=== PATIENT | male | born 1940 | race African-American/Black ===

== ENCOUNTER 2020-05-15 08:57 | Inpatient (IN) | payer MEDICARE, OTHER ==
[2020-05-15 09:53] LABS: #Monocytes 0.4 10x3/uL (0.0-1.1); #Neutrophils 7.6 10x3/uL (1.5-8.4); %Basophils 0.2 % (0.0-2.0); %Eosinophils 0.1 % (0.0-6.0); %Lymphocytes 7.7 % (18.0-47.0); %Monocytes 4.4 % (0.0-10.0); %Neutrophils 87.3 % (40.0-75.0); Hemoglobin 13.1 g/dL (13.5-17.5); Mean Corpuscular HGB CONC 31.7 g/dL (32.0-36.0); Mean Corpuscular Hemoglobin 31.6 pg (27.0-33.0); Mean Corpuscular Volume 99.5 fl (81.2-95.1); Mean Platelet Volume 10.2 fl (7.4-10.4); Platelet Count 175 10x3/uL (150-450); RBC Distribution Width 14.5 % (11.5-14.5); Red Blood Cell (RBC) Count 4.15 10x6/uL (4.32-5.72); White Blood Cell (WBC) Count 8.7 10x3/uL (3.5-10.5)
[2020-05-15 10:17] LABS: ALT (SGPT) 18 U/L (8-55); AST (SGOT) 25 U/L (5-34); Albumin 4.3 g/dL (3.4-4.8); Alkaline Phosphatase 98 U/L (40-110); Anion Gap 21 mmol/L (10-20); BUN (Urea Nitrogen) 26 mg/dL (8.4-25.7); Bilirubin, Total 0.9 mg/dL (0.2-1.2); Calc. Creatinine Clearance 0 mL/min (70-130); Calcium 9.6 mg/dL (7.8-10.44); Carbon Dioxide 22 mmol/L (23-31); Chloride 100 mmol/L (98-107); Globulin 4.3 g/dL (2.4-3.5); Glucose 171 mg/dL (83-110); Protein, Total 8.6 g/dL (5.8-8.1); Sodium 139 mmol/L (136-145)
[2020-05-15] MEDS ORDERED: Ondansetron PF 4 MG/2 ML Vial IVP PRN (13:06)
[2020-05-15] MEDS ORDERED: Lorazepam 2 MG/ML VIAL ONE (13:14)
[2020-05-15] MEDS ORDERED: Fentanyl CADD 100 ML IVPB SCH ×2 (14:30→19:30)
[2020-05-15 15:01] LABS: Actual Bicarbonate (HCO3a) 22.7 mEq/L (22-28); Base Excess (BEa) -5.6 mEq/L (-2.0 to +3.0); CO2 Tension 56.4 mmHg (35.0-45.0); Calcium, Ionized (arterial) 1.18 mmol/L (1.12-1.30); Carboxyhemoglobin (COHb) 0.4 gm% (0.0-3.0); O2 Tension (PaO2), arterial 189.8 mmHg (> 60.0); Potassium - ABG Lab 3.8 mmol/L (3.70-5.30); Puncture Site LRA; pH, Arterial 7.22 (7.35-7.45)
[2020-05-15 16:04] LABS: SARS-CoV-2 NAA Rapid Test Not Detected (NotDetected)
[2020-05-15 16:09] LABS: ALT (SGPT) 18 U/L (8-55); AST (SGOT) 25 U/L (5-34); Albumin 3.9 g/dL (3.4-4.8); Alkaline Phosphatase 90 U/L (40-110); Anion Gap 17 mmol/L (10-20); BUN (Urea Nitrogen) 32 mg/dL (8.4-25.7); Calc. Creatinine Clearance 0 mL/min (70-130); Calcium 9.1 mg/dL (7.8-10.44); Carbon Dioxide 26 mmol/L (23-31); Chloride 99 mmol/L (98-107); Globulin 4.2 g/dL (2.4-3.5); Glucose 157 mg/dL (83-110); Potassium 3.7 mmol/L (3.5-5.1); Protein, Total 8.1 g/dL (5.8-8.1); Sodium 138 mmol/L (136-145)
[2020-05-15 16:13] LABS: #Monocytes 0.5 10x3/uL (0.0-1.1); #Neutrophils 6.8 10x3/uL (1.5-8.4); %Basophils 0.1 % (0.0-2.0); %Eosinophils 0.1 % (0.0-6.0); %Lymphocytes 6.7 % (18.0-47.0); %Monocytes 6.2 % (0.0-10.0); %Neutrophils 86.6 % (40.0-75.0); Hemoglobin 12.9 g/dL (13.5-17.5); Mean Corpuscular HGB CONC 32.6 g/dL (32.0-36.0); Mean Corpuscular Hemoglobin 31.4 pg (27.0-33.0); Mean Corpuscular Volume 96.4 fl (81.2-95.1); Mean Platelet Volume 10.1 fl (7.4-10.4); Platelet Count 169 10x3/uL (150-450); RBC Distribution Width 14.4 % (11.5-14.5); Red Blood Cell (RBC) Count 4.11 10x6/uL (4.32-5.72); White Blood Cell (WBC) Count 7.9 10x3/uL (3.5-10.5)
[2020-05-15 16:19] LABS: Bilirubin Neg (Negative); Blood, Urine 150 (Negative); Clarity Cloudy (Clear); Glucose, Urine (Dipstick) Normal (Negative); Ketone, Urine Negative (Negative); Leukocyte 25 (Negative); Nitrite Negative (Negative); Protein, Urine (Dipstick) 100 mg/dl (Neg-Trace); Urobilinogen Normal mg/dL (Less than 2)
[2020-05-15 16:28] LABS: Bacteria/HPF 2+ HPF (None Seen); Squamous Epithelial 0-3 HPF (0-3)
[2020-05-15 16:29] LABS: Mucous/LPF 1+ LPF (<2+)
[2020-05-15 16:35] LABS: CKMB 9.5 ng/mL (0-6.6)
[2020-05-15] MEDS: D5 1/2 NS w/20 mEq KCL 1,000 ML IV SCH ×2 (18:31→22:38)
[2020-05-15] MEDS ORDERED: Propofol BOLUS 1,000 MG/100 ML VIAL IV PRN (19:30)
[2020-05-15] MEDS ORDERED: Fentanyl BOLUS 250 ML IVPB PRN (19:30)
[2020-05-15] MEDS ORDERED: Lorazepam 2 MG/ML VIAL SLOW IVP PRN (19:30)
[2020-05-15] MEDS ORDERED: Morphine 2 MG/ML VIAL SLOW IVP PRN (19:30)
[2020-05-15] MEDS ORDERED: Propofol 1,000 MG/100 ML VIAL IV PRN (19:30)
[2020-05-15] MEDS: Heparin 5,000 UNITS/ML VIAL SC SCH ×2 (20:08→22:36)
[2020-05-15] MEDS: Famotidine 20 MG TAB PO SCH (22:37)
[2020-05-16] MEDS: Propofol 1,000 MG/100 ML VIAL IV PRN ×4 (00:05→20:19)
[2020-05-16 04:07] LABS: Lactic Acid 3.7 mmol/L (0.5-2.2)
[2020-05-16] MEDS: D5 1/2 NS w/20 mEq KCL 1,000 ML IV SCH ×3 (04:07→20:32)
[2020-05-16 04:08] LABS: Hemoglobin 13.1 g/dL (13.5-17.5); Mean Corpuscular HGB CONC 32.8 g/dL (32.0-36.0); Mean Corpuscular Hemoglobin 32.1 pg (27.0-33.0); Mean Platelet Volume 11.1 fl (7.4-10.4); Platelet Count 131 10x3/uL (150-450); RBC Distribution Width 14.6 % (11.5-14.5); Red Blood Cell (RBC) Count 4.08 10x6/uL (4.32-5.72); White Blood Cell (WBC) Count 9.6 10x3/uL (3.5-10.5)
[2020-05-16 04:11] LABS: Anion Gap 17 mmol/L (10-20); BUN (Urea Nitrogen) 35 mg/dL (8.4-25.7); Calc. Creatinine Clearance 38 mL/min (70-130); Carbon Dioxide 27 mmol/L (23-31); Chloride 97 mmol/L (98-107); Glucose 134 mg/dL (83-110); Potassium 4.1 mmol/L (3.5-5.1); Sodium 137 mmol/L (136-145)
[2020-05-16 05:09] LABS: MDiff Complete? YES
[2020-05-16 05:18] LABS: Anisocytosis SLIGHT = 6-15 cells (100X) (0-5/hpf); Band 42 % (5-11); Eosinophils 1 % (0-10); Lymphocytes 17 % (21-51); Monocytes 2 % (0-10); Neutrophil 38 % (42-75); Poikilocytosis MODERATE=16-30 cells (100X) (0-5/hpf); Rouleaux Formation SLIGHT = 1-5 cells (100X) (None Seen)
[2020-05-16 05:19] LABS: Large Platelets SLIGHT; Platelet Clumps SLIGHT; Platelet Morphology Comment Appears Decreased
[2020-05-16] MEDS: Heparin 5,000 UNITS/ML VIAL SC SCH ×3 (07:57→19:42)
[2020-05-16] MEDS: Famotidine 20 MG TAB PO SCH ×2 (07:58→19:29)
[2020-05-16] MEDS ORDERED: FLU VACC QS2020-21(65YR UP)/PF 240 MCG/0.7 ML SYRINGE IM ONE (09:00)
[2020-05-16 09:33] LABS: CKMB 9.2 ng/mL (0-6.6)
[2020-05-16] MEDS ORDERED: EPINEPHrine 1 MG/ML AMP ONE (09:34)
[2020-05-16] MEDS ORDERED: Bupivacaine 0.25% HCL 30 ML VIAL ONE (09:34)
[2020-05-16] MEDS ORDERED: Oxymetazoline HCl 0.05% ( 15 ML ) ONE (10:10)
[2020-05-16] MEDS ORDERED: Rocuronium Bromide 10 MG/ML (10ML VIAL) ONE (10:27)
[2020-05-16] MEDS ORDERED: Fentanyl 250 MCG/5 ML VIAL ONE (10:28)
[2020-05-16] MEDS ORDERED: Fentanyl 100 MCG/2 ML VIAL ONE (10:29)
[2020-05-16] MEDS ORDERED: ceFOXitin 1 GM VIAL ONE (10:52)
[2020-05-16] MEDS ORDERED: ePHEDrine 50 MG/ML VIAL ONE (11:52)
[2020-05-16] MEDS ORDERED: Fentanyl CADD 100 ML IV SCH (13:00)
[2020-05-16] MEDS ORDERED: Fentanyl BOLUS 250 ML IVPB PRN (13:00)
[2020-05-16 13:12] LABS: Hemoglobin 13.1 g/dL (13.5-17.5); Mean Corpuscular HGB CONC 37.1 g/dL (32.0-36.0); Mean Corpuscular Hemoglobin 36.1 pg (27.0-33.0); Mean Corpuscular Volume 97.2 fl (81.2-95.1); Mean Platelet Volume 12.1 fl (7.4-10.4); Platelet Count 184 10x3/uL (150-450); RBC Distribution Width 14.6 % (11.5-14.5); Red Blood Cell (RBC) Count 3.63 10x6/uL (4.32-5.72); White Blood Cell (WBC) Count 3.2 10x3/uL (3.5-10.5)
[2020-05-16 13:28] LABS: MDiff Complete? YES
[2020-05-16 13:37] LABS: Band 37 % (5-11); Eosinophils 5 % (0-10); Lymphocytes 10 % (21-51); Monocytes 5 % (0-10); Neutrophil 43 % (42-75)
[2020-05-16 13:40] LABS: Large Platelets SLIGHT; Platelet Morphology Comment Appears Adequate
[2020-05-16] MEDS: cefTRIAXone\\ROCEPHIN 1 GM in Sodium Chloride 0.9% 100 ML IVPB SCH (13:59)
[2020-05-16] MEDS ORDERED: cefTRIAXone\\ROCEPHIN 1 GM VIAL ONE (14:00)
[2020-05-16] MEDS ORDERED: Sodium Chloride 0.9% 100 ML ONE (14:00)
[2020-05-16 14:30] LABS: Anion Gap 15 mmol/L (10-20); BUN (Urea Nitrogen) 35 mg/dL (8.4-25.7); Calc. Creatinine Clearance 41 mL/min (70-130); Calcium 7.9 mg/dL (7.8-10.44); Carbon Dioxide 24 mmol/L (23-31); Chloride 104 mmol/L (98-107); Glucose 100 mg/dL (83-110); Potassium 3.7 mmol/L (3.5-5.1); Sodium 139 mmol/L (136-145)
[2020-05-16 16:31] LABS: Actual Bicarbonate (HCO3a) 25.6 mEq/L (22-28); Base Excess (BEa) 0.1 mEq/L (-2.0 to +3.0); CO2 Tension 44.4 mmHg (35.0-45.0); Calcium, Ionized (arterial) 1.18 mmol/L (1.12-1.30); Carboxyhemoglobin (COHb) 0.1 gm% (0.0-3.0); Hemoglobin (Hb) 13.8 g/dL (14.0-18.0); O2 Tension (PaO2), arterial 131.8 mmHg (> 60.0); Potassium - ABG Lab 3.7 mmol/L (3.70-5.30); Puncture Site LRA; pH, Arterial 7.38 (7.35-7.45)
[2020-05-16 23:00] LABS: Troponin I 0.038 ng/mL (< 0.028)
[2020-05-17] MEDS: Propofol 1,000 MG/100 ML VIAL IV PRN ×4 (02:36→20:05)
[2020-05-17] MEDS: D5 1/2 NS w/20 mEq KCL 1,000 ML IV SCH ×3 (04:21→20:25)
[2020-05-17] MEDS: Heparin 5,000 UNITS/ML VIAL SC SCH ×3 (08:28→20:24)
[2020-05-17] MEDS: Famotidine 20 MG TAB PO SCH (08:43)
[2020-05-17] MEDS ORDERED: EPINEPHrine 1 MG/ML AMP ONE (09:20)
[2020-05-17] MEDS ORDERED: Bupivacaine 0.25% HCL 30 ML VIAL ONE (09:20)
[2020-05-17] MEDS: cefTRIAXone\\ROCEPHIN 1 GM in Sodium Chloride 0.9% 100 ML IVPB SCH (12:10)
[2020-05-17] MEDS: Metoprolol Tartrate 5 MG/5 ML VIAL IVP SCH ×3 (12:10→18:11)
[2020-05-17 12:19] LABS: Anion Gap 13 mmol/L (10-20); BUN (Urea Nitrogen) 34 mg/dL (8.4-25.7); Calc. Creatinine Clearance 55 mL/min (70-130); Calcium 7.6 mg/dL (7.8-10.44); Carbon Dioxide 22 mmol/L (23-31); Chloride 106 mmol/L (98-107); Glucose 81 mg/dL (83-110); Potassium 5.3 mmol/L (3.5-5.1); Sodium 136 mmol/L (136-145)
[2020-05-17] MEDS ORDERED: PROPOFOL 20 ML ONE (12:24)
[2020-05-17] MEDS ORDERED: PHENYLEPHRINE-NS 100 MCG/ML 10 ML SYRINGE ONE (12:40)
[2020-05-17] MEDS ORDERED: Fentanyl 100 MCG/2 ML VIAL ONE (12:41)
[2020-05-17 12:51] LABS: Hemoglobin 12.3 g/dL (13.5-17.5); Mean Corpuscular HGB CONC 32.3 g/dL (32.0-36.0); Mean Corpuscular Hemoglobin 31.8 pg (27.0-33.0); Mean Corpuscular Volume 98.4 fl (81.2-95.1); Mean Platelet Volume 11.3 fl (7.4-10.4); Platelet Count 98 10x3/uL (150-450); RBC Distribution Width 14.6 % (11.5-14.5); Red Blood Cell (RBC) Count 3.87 10x6/uL (4.32-5.72)
[2020-05-17 12:52] LABS: MDiff Complete? YES
[2020-05-17 12:58] LABS: Band 55 % (5-11); Lymphocytes 18 % (21-51); Monocytes 8 % (0-10); Neutrophil 18 % (42-75); Reactive Lymphocytes 1 % (0-10)
[2020-05-17 13:03] LABS: Platelet Morphology Comment Appears Decreased
[2020-05-17 13:05] LABS: Reflex for Review?? YES
[2020-05-17] MEDS ORDERED: Famotidine/PF 20 mg/2ml Vial SLOW IVP SCH (21:00)
[2020-05-18] MEDS: Metoprolol Tartrate 5 MG/5 ML VIAL IVP SCH ×4 (02:47→17:02)
[2020-05-18 04:45] LABS: Anion Gap 15 mmol/L (10-20); BUN (Urea Nitrogen) 32 mg/dL (8.4-25.7); Calc. Creatinine Clearance 59 mL/min (70-130); Calcium 7.8 mg/dL (7.8-10.44); Carbon Dioxide 22 mmol/L (23-31); Chloride 102 mmol/L (98-107); Potassium 4.3 mmol/L (3.5-5.1); Sodium 135 mmol/L (136-145)
[2020-05-18 04:49] LABS: Glucose 52 mg/dL (83-110)
[2020-05-18] MEDS ORDERED: Dextrose 50% Abboject 50 ML SYRINGE ONE ×2 (04:51→05:12)
[2020-05-18] MEDS ORDERED: Dextrose 50% Abboject 50 ML SYRINGE SLOW IVP SCH ×2 (04:55→05:15)
[2020-05-18 05:24] LABS: Mean Corpuscular HGB CONC 33.2 g/dL (32.0-36.0); Mean Corpuscular Hemoglobin 32.3 pg (27.0-33.0); Platelet Count 83 10x3/uL (150-450); RBC Distribution Width 14.7 % (11.5-14.5); Red Blood Cell (RBC) Count 3.72 10x6/uL (4.32-5.72); White Blood Cell (WBC) Count 12.2 10x3/uL (3.5-10.5)
[2020-05-18] MEDS: D5 1/2 NS w/20 mEq KCL 1,000 ML IV SCH (06:06)
[2020-05-18 06:10] LABS: Glucose 142 mg/dL (83-110)
[2020-05-18 06:55] LABS: Band 32 % (5-11); Eosinophils 3 % (0-10); Lymphocytes 6 % (21-51); Monocytes 1 % (0-10); Neutrophil 58 % (42-75)
[2020-05-18 06:57] LABS: Anisocytosis SLIGHT = 6-15 cells (100X) (0-5/hpf); Macrocytosis SLIGHT = 6-15 cells (100X) (0-5/hpf)
[2020-05-18 06:58] LABS: Dohle Bodies MODERATE; Large Platelets SLIGHT; Platelet Morphology Comment Appears Decreased; Toxic Granulation SLIGHT; Vacuoles SLIGHT
[2020-05-18 07:08] LABS: MDiff Complete? YES; Manual Diff?? YES
[2020-05-18] MEDS: Dextrose 5 %-0.45 % NaCl 1,000 ML IV SCH ×2 (09:05→15:51)
[2020-05-18] MEDS: Famotidine/PF 20 mg/2ml Vial SLOW IVP SCH (09:08)
[2020-05-18] MEDS: Heparin 5,000 UNITS/ML VIAL SC SCH ×3 (09:37→23:30)
[2020-05-18] MEDS: cefTRIAXone\\ROCEPHIN 1 GM in Sodium Chloride 0.9% 100 ML IVPB SCH (11:44)
[2020-05-19] MEDS: Metoprolol Tartrate 5 MG/5 ML VIAL IVP SCH ×5 (00:08→22:30)
[2020-05-19 05:54] LABS: Anion Gap 14 mmol/L (10-20); BUN (Urea Nitrogen) 21 mg/dL (8.4-25.7); Calc. Creatinine Clearance 70 mL/min (70-130); Carbon Dioxide 24 mmol/L (23-31); Chloride 104 mmol/L (98-107); Glucose 70 mg/dL (83-110); Potassium 3.3 mmol/L (3.5-5.1); Sodium 139 mmol/L (136-145)
[2020-05-19 06:10] LABS: Hemoglobin 10.8 g/dL (13.5-17.5); Mean Corpuscular HGB CONC 32.6 g/dL (32.0-36.0); Mean Corpuscular Volume 95.1 fl (81.2-95.1); Mean Platelet Volume 12.1 fl (7.4-10.4); Platelet Count 113 10x3/uL (150-450); RBC Distribution Width 14.6 % (11.5-14.5); Red Blood Cell (RBC) Count 3.48 10x6/uL (4.32-5.72); White Blood Cell (WBC) Count 12.8 10x3/uL (3.5-10.5)
[2020-05-19] MEDS: Famotidine/PF 20 mg/2ml Vial SLOW IVP SCH (08:03)
[2020-05-19] MEDS: Heparin 5,000 UNITS/ML VIAL SC SCH ×3 (08:03→21:46)
[2020-05-19] MEDS: Dextrose 5 %-0.45 % NaCl 1,000 ML IV SCH (08:03)
[2020-05-19 08:18] LABS: MDiff Complete? YES
[2020-05-19 08:27] LABS: Eosinophils 4 % (0-10); Lymphocytes 13 % (21-51); Neutrophil 60 % (42-75); Reactive Lymphocytes 1 % (0-10)
[2020-05-19 08:28] LABS: Band 15 % (5-11); Monocytes 6 % (0-10); Platelet Morphology Comment Appears Decreased
[2020-05-19 08:29] LABS: RBC Morphology Normal
[2020-05-19] MEDS: D5 1/2 NS w/20 mEq KCL 1,000 ML IV SCH (10:25)
[2020-05-19] MEDS: cefTRIAXone\\ROCEPHIN 1 GM in Sodium Chloride 0.9% 100 ML IVPB SCH (11:10)
[2020-05-19 11:24] LABS: Hemoglobin 10.5 g/dL (13.5-17.5); Mean Corpuscular HGB CONC 32.6 g/dL (32.0-36.0); Mean Corpuscular Hemoglobin 31.8 pg (27.0-33.0); Mean Corpuscular Volume 97.6 fl (81.2-95.1); Mean Platelet Volume 11.6 fl (7.4-10.4); Platelet Count 116 10x3/uL (150-450); RBC Distribution Width 14.6 % (11.5-14.5); White Blood Cell (WBC) Count 13.5 10x3/uL (3.5-10.5)
[2020-05-19 11:39] LABS: Anion Gap 14 mmol/L (10-20); BUN (Urea Nitrogen) 19 mg/dL (8.4-25.7); Calc. Creatinine Clearance 74 mL/min (70-130); Calcium 8.2 mg/dL (7.8-10.44); Carbon Dioxide 26 mmol/L (23-31); Chloride 104 mmol/L (98-107); Glucose 77 mg/dL (83-110); Potassium 3.6 mmol/L (3.5-5.1); Sodium 140 mmol/L (136-145)
[2020-05-19 11:40] LABS: MDiff Complete? YES
[2020-05-19 11:49] LABS: Band 7 % (5-11); Eosinophils 6 % (0-10); Lymphocytes 9 % (21-51); Monocytes 9 % (0-10); Neutrophil 69 % (42-75); Nucleated RBC 2 % (0)
[2020-05-19 11:50] LABS: Platelet Morphology Comment Appears Decreased
[2020-05-19] MEDS: Acetaminophen 500 MG TAB PO PRN (18:07)
[2020-05-19 18:22] LABS: Bilirubin Neg (Negative); Blood, Urine 50 (Negative); Clarity Clear (Clear); Glucose, Urine (Dipstick) Normal (Negative); Ketone, Urine Negative (Negative); Leukocyte 25 (Negative); Nitrite Negative (Negative); Protein, Urine (Dipstick) 30 mg/dl (Neg-Trace); Urobilinogen Normal mg/dL (Less than 2)
[2020-05-19 18:57] LABS: Squamous Epithelial None Seen HPF (0-3); WBC/HPF 0-3 HPF (0-3)
[2020-05-19 18:58] LABS: Bacteria/HPF 2+ HPF (None Seen); Mucous/LPF 1+ LPF (<2+); RBC/HPF 0-3 HPF (0-3)
[2020-05-19] MEDS ORDERED: Sodium Chloride 0.9% 500 ML IV SCH ×2 (21:30→22:45)
[2020-05-19] MEDS ORDERED: Morphine 2 MG/ML VIAL SLOW IVP SCH (21:30)
[2020-05-19] MEDS: Polyethylene Glycol 3350 17 GM Packet PO SCH (23:00)
[2020-05-19] MEDS: Cefepime 1 GM in Sodium Chloride 0.9% 100 ML IVPB SCH (23:00)
[2020-05-19] MEDS ORDERED: Vancomycin 1.5 GRAM/300 ML BAG 1.5 GM in Premix Bag 1 BAG IVPB SCH (23:59)
[2020-05-20] MEDS: D5 1/2 NS w/20 mEq KCL 1,000 ML IV SCH ×3 (04:00→19:25)
[2020-05-20] MEDS: Morphine 2 MG/ML VIAL SLOW IVP PRN ×2 (04:00→08:48)
[2020-05-20 05:15] LABS: Anion Gap 10 mmol/L (10-20); BUN (Urea Nitrogen) 17 mg/dL (8.4-25.7); Calc. Creatinine Clearance 81 mL/min (70-130); Calcium 7.9 mg/dL (7.8-10.44); Carbon Dioxide 26 mmol/L (23-31); Chloride 107 mmol/L (98-107); Potassium 3.5 mmol/L (3.5-5.1); Sodium 139 mmol/L (136-145)
[2020-05-20 05:26] LABS: Glucose 55 mg/dL (83-110)
[2020-05-20] MEDS ORDERED: Dextrose 50% Abboject 50 ML SYRINGE ONE (05:29)
[2020-05-20 05:39] LABS: #Eosinphils 0.7 10x3/uL (0.0-0.5); #Monocytes 1.5 10x3/uL (0.0-1.1); #Neutrophils 9.6 10x3/uL (1.5-8.4); %Basophils 0.2 % (0.0-2.0); %Eosinophils 5.2 % (0.0-6.0); %Lymphocytes 9.4 % (18.0-47.0); %Neutrophils 71.4 % (40.0-75.0); Hemoglobin 9.9 g/dL (13.5-17.5); Mean Corpuscular HGB CONC 31.7 g/dL (32.0-36.0); Mean Corpuscular Volume 97.8 fl (81.2-95.1); Mean Platelet Volume 11.4 fl (7.4-10.4); Platelet Count 133 10x3/uL (150-450); RBC Distribution Width 14.6 % (11.5-14.5); Red Blood Cell (RBC) Count 3.19 10x6/uL (4.32-5.72); White Blood Cell (WBC) Count 13.4 10x3/uL (3.5-10.5)
[2020-05-20] MEDS: Metoprolol Tartrate 5 MG/5 ML VIAL IVP SCH (05:57)
[2020-05-20] MEDS ORDERED: Sodium Chloride 0.9% 1,000 ML IV SCH (07:15)
[2020-05-20] MEDS: Heparin 5,000 UNITS/ML VIAL SC SCH ×3 (08:02→21:36)
[2020-05-20] MEDS: Famotidine/PF 20 mg/2ml Vial SLOW IVP SCH (08:02)
[2020-05-20] MEDS: Polyethylene Glycol 3350 17 GM Packet PO SCH (08:02)
[2020-05-20] MEDS ORDERED: Metoprolol Tartrate 5 MG/5 ML VIAL IVP PRN (09:07)
[2020-05-20] MEDS: Atenolol 25 MG TAB PO SCH (09:27)
[2020-05-20] MEDS ORDERED: Potassium Chloride 20 MEQ TAB PO SCH (09:45)
[2020-05-20] MEDS ORDERED: Digoxin 0.5 MG/2 ML AMP SLOW IVP SCH (10:00)
[2020-05-20] MEDS ORDERED: Digoxin 0.5 MG/2 ML AMP ONE (10:01)
[2020-05-20] MEDS: Acetaminophen 500 MG TAB PO PRN (10:20)
[2020-05-20] MEDS: Cefepime 1 GM in Sodium Chloride 0.9% 100 ML IVPB SCH ×2 (11:08→23:30)
[2020-05-20] MEDS: Vancomycin HCl 1 GM in Sodium Chloride 0.9% 250 ML 250 ML IVPB SCH (11:17)
[2020-05-20] MEDS: Hydrocodone-Acetamin 15 ML UDCUP PO PRN ×2 (13:00→23:00)
[2020-05-20 16:10] LABS: Heparin-Induced Ab (HITA) 0.13 OD (0.000-0.400)
[2020-05-21] MEDS: Vancomycin HCl 1 GM in Sodium Chloride 0.9% 250 ML 250 ML IVPB SCH ×2 (00:15→10:59)
[2020-05-21] MEDS: Polyethylene Glycol 3350 17 GM Packet PO SCH ×3 (02:38→21:04)
[2020-05-21] MEDS: D5 1/2 NS w/20 mEq KCL 1,000 ML IV SCH ×3 (02:39→14:21)
[2020-05-21] MEDS: Famotidine/PF 20 mg/2ml Vial SLOW IVP SCH (07:48)
[2020-05-21] MEDS: Heparin 5,000 UNITS/ML VIAL SC SCH ×3 (07:48→21:04)
[2020-05-21] MEDS: Aspirin 81 mg Enteric Coated Tablet PO SCH (07:50)
[2020-05-21] MEDS: Atenolol 25 MG TAB PO SCH (07:50)
[2020-05-21] MEDS: Cefepime 1 GM in Sodium Chloride 0.9% 100 ML IVPB SCH ×2 (10:07→22:00)
[2020-05-21 10:36] LABS: Vancomycin, Trough 10.9 ug/mL
[2020-05-21] MEDS: Acetaminophen 500 MG TAB PO PRN (21:05)
[2020-05-21] MEDS: VANCOMYCIN 1.25 GM/250 ML BAG 1.25 GM in Premix Bag 1 BAG IVPB SCH (23:15)
[2020-05-22] MEDS: D5 1/2 NS w/20 mEq KCL 1,000 ML IV SCH ×3 (04:03→17:47)
[2020-05-22 04:46] LABS: Anion Gap 19 mmol/L (10-20)
[2020-05-22 04:55] LABS: BUN (Urea Nitrogen) 15 mg/dL (8.4-25.7); Calc. Creatinine Clearance 84 mL/min (70-130); Carbon Dioxide 18 mmol/L (23-31); Chloride 110 mmol/L (98-107); Glucose 81 mg/dL (83-110); Potassium 5.6 mmol/L (3.5-5.1); Sodium 141 mmol/L (136-145)
[2020-05-22 08:07] LABS: #Eosinphils 0.4 10x3/uL (0.0-0.5); #Monocytes 1.3 10x3/uL (0.0-1.1); #Neutrophils 12.9 10x3/uL (1.5-8.4); %Basophils 0.3 % (0.0-2.0); %Eosinophils 2.3 % (0.0-6.0); %Lymphocytes 7.1 % (18.0-47.0); %Monocytes 8.1 % (0.0-10.0); %Neutrophils 80.8 % (40.0-75.0); Hemoglobin 9.9 g/dL (13.5-17.5); Mean Corpuscular HGB CONC 32.5 g/dL (32.0-36.0); Mean Corpuscular Hemoglobin 31.6 pg (27.0-33.0); Mean Corpuscular Volume 97.4 fl (81.2-95.1); Platelet Count 199 10x3/uL (150-450); RBC Distribution Width 14.9 % (11.5-14.5); Red Blood Cell (RBC) Count 3.13 10x6/uL (4.32-5.72)
[2020-05-22] MEDS: Heparin 5,000 UNITS/ML VIAL SC SCH ×3 (08:38→21:33)
[2020-05-22] MEDS: Atenolol 25 MG TAB PO SCH (08:38)
[2020-05-22] MEDS: Polyethylene Glycol 3350 17 GM Packet PO SCH ×2 (08:38→21:35)
[2020-05-22] MEDS: Famotidine/PF 20 mg/2ml Vial SLOW IVP SCH ×2 (08:38→21:32)
[2020-05-22] MEDS: Aspirin 81 mg Enteric Coated Tablet PO SCH (08:38)
[2020-05-22 08:40] LABS: Anion Gap 11 mmol/L (10-20); BUN (Urea Nitrogen) 14 mg/dL (8.4-25.7); Calc. Creatinine Clearance 94 mL/min (70-130); Calcium 8.2 mg/dL (7.8-10.44); Carbon Dioxide 24 mmol/L (23-31); Chloride 107 mmol/L (98-107); Glucose 92 mg/dL (83-110); Potassium 4.3 mmol/L (3.5-5.1); Sodium 138 mmol/L (136-145)
[2020-05-22] MEDS: Cefepime 1 GM in Sodium Chloride 0.9% 100 ML IVPB SCH ×2 (10:30→22:30)
[2020-05-22] MEDS: VANCOMYCIN 1.25 GM/250 ML BAG 1.25 GM in Premix Bag 1 BAG IVPB SCH ×2 (10:31→23:10)
[2020-05-22] MEDS ORDERED: Sodium Bicarbonate 2.5 MEQ/5 ML VIAL ONE (12:32)
[2020-05-22] MEDS ORDERED: Lidocaine 1% PF 5 ML VIAL ONE (12:33)
[2020-05-23] MEDS: D5 1/2 NS w/20 mEq KCL 1,000 ML IV SCH (02:59)
[2020-05-23 04:20] LABS: #Eosinphils 0.4 10x3/uL (0.0-0.5); #Monocytes 0.9 10x3/uL (0.0-1.1); #Neutrophils 11.3 10x3/uL (1.5-8.4); %Basophils 0.1 % (0.0-2.0); %Eosinophils 2.5 % (0.0-6.0); %Lymphocytes 8.1 % (18.0-47.0); %Monocytes 6.6 % (0.0-10.0); %Neutrophils 81.5 % (40.0-75.0); Hemoglobin 8.1 g/dL (13.5-17.5); Mean Corpuscular HGB CONC 32.3 g/dL (32.0-36.0); Mean Corpuscular Hemoglobin 31.6 pg (27.0-33.0); Mean Platelet Volume 10.9 fl (7.4-10.4); Platelet Count 208 10x3/uL (150-450); Red Blood Cell (RBC) Count 2.56 10x6/uL (4.32-5.72); White Blood Cell (WBC) Count 13.8 10x3/uL (3.5-10.5)
[2020-05-23 05:06] LABS: Carbon Dioxide 24 mmol/L (23-31); Chloride 107 mmol/L (98-107); Potassium 5.5 mmol/L (3.5-5.1); Sodium 138 mmol/L (136-145)
[2020-05-23 05:08] LABS: BUN (Urea Nitrogen) 14 mg/dL (8.4-25.7)
[2020-05-23 05:09] LABS: Calc. Creatinine Clearance 95 mL/min (70-130); Calcium 7.7 mg/dL (7.8-10.44); Glucose 95 mg/dL (83-110)
[2020-05-23 05:11] LABS: Anion Gap 13 mmol/L (10-20)
[2020-05-23] MEDS: Atenolol 25 MG TAB PO SCH (08:20)
[2020-05-23] MEDS: Polyethylene Glycol 3350 17 GM Packet PO SCH (08:20)
[2020-05-23] MEDS: Heparin 5,000 UNITS/ML VIAL SC SCH ×3 (08:20→20:22)
[2020-05-23] MEDS: Famotidine/PF 20 mg/2ml Vial SLOW IVP SCH ×2 (08:20→20:22)
[2020-05-23] MEDS: Aspirin 81 mg Enteric Coated Tablet PO SCH (08:21)
[2020-05-23] MEDS: Cefepime 1 GM in Sodium Chloride 0.9% 100 ML IVPB SCH ×2 (10:23→22:30)
[2020-05-23] MEDS: VANCOMYCIN 1.25 GM/250 ML BAG 1.25 GM in Premix Bag 1 BAG IVPB SCH ×2 (10:24→23:15)
[2020-05-23 10:28] LABS: Vancomycin, Trough 19.9 ug/mL
[2020-05-24 04:26] LABS: #Eosinphils 0.4 10x3/uL (0.0-0.5); #Monocytes 0.9 10x3/uL (0.0-1.1); #Neutrophils 11.3 10x3/uL (1.5-8.4); %Basophils 0.2 % (0.0-2.0); %Eosinophils 2.8 % (0.0-6.0); %Lymphocytes 9.1 % (18.0-47.0); %Monocytes 6.4 % (0.0-10.0); %Neutrophils 80.2 % (40.0-75.0); Hemoglobin 9.8 g/dL (13.5-17.5); Mean Corpuscular HGB CONC 32.7 g/dL (32.0-36.0); Mean Corpuscular Hemoglobin 31.8 pg (27.0-33.0); Mean Corpuscular Volume 97.4 fl (81.2-95.1); Mean Platelet Volume 10.9 fl (7.4-10.4); Platelet Count 278 10x3/uL (150-450); Red Blood Cell (RBC) Count 3.08 10x6/uL (4.32-5.72); White Blood Cell (WBC) Count 14.1 10x3/uL (3.5-10.5)
[2020-05-24 04:34] LABS: Anion Gap 13 mmol/L (10-20); BUN (Urea Nitrogen) 15 mg/dL (8.4-25.7); Calc. Creatinine Clearance 83 mL/min (70-130); Calcium 7.9 mg/dL (7.8-10.44); Carbon Dioxide 21 mmol/L (23-31); Chloride 108 mmol/L (98-107); Glucose 82 mg/dL (83-110); Potassium 4.2 mmol/L (3.5-5.1); Sodium 138 mmol/L (136-145)
[2020-05-24] MEDS: Polyethylene Glycol 3350 17 GM Packet PO SCH (08:01)
[2020-05-24] MEDS: Heparin 5,000 UNITS/ML VIAL SC SCH ×3 (08:01→20:56)
[2020-05-24] MEDS: Famotidine/PF 20 mg/2ml Vial SLOW IVP SCH ×2 (08:01→20:56)
[2020-05-24] MEDS: Aspirin 81 mg Enteric Coated Tablet PO SCH (08:02)
[2020-05-24] MEDS: Atenolol 25 MG TAB PO SCH (08:02)
[2020-05-24] MEDS: Cefepime 1 GM in Sodium Chloride 0.9% 100 ML IVPB SCH ×2 (10:05→23:04)
[2020-05-24] MEDS: VANCOMYCIN 1.25 GM/250 ML BAG 1.25 GM in Premix Bag 1 BAG IVPB SCH ×2 (11:36→23:05)
[2020-05-24 23:15] LABS: Vancomycin, Trough 23.1 ug/mL
[2020-05-25 04:36] LABS: #Eosinphils 0.3 10x3/uL (0.0-0.5); #Monocytes 0.8 10x3/uL (0.0-1.1); #Neutrophils 10.9 10x3/uL (1.5-8.4); %Basophils 0.2 % (0.0-2.0); %Eosinophils 2.2 % (0.0-6.0); %Monocytes 6.3 % (0.0-10.0); %Neutrophils 82.5 % (40.0-75.0); Hemoglobin 9.4 g/dL (13.5-17.5); Mean Corpuscular HGB CONC 33.1 g/dL (32.0-36.0); Mean Corpuscular Hemoglobin 31.9 pg (27.0-33.0); Mean Corpuscular Volume 96.3 fl (81.2-95.1); Mean Platelet Volume 10.5 fl (7.4-10.4); Platelet Count 346 10x3/uL (150-450); RBC Distribution Width 15.1 % (11.5-14.5); Red Blood Cell (RBC) Count 2.95 10x6/uL (4.32-5.72); White Blood Cell (WBC) Count 13.2 10x3/uL (3.5-10.5)
[2020-05-25 04:46] LABS: Anion Gap 12 mmol/L (10-20); BUN (Urea Nitrogen) 15 mg/dL (8.4-25.7); Calc. Creatinine Clearance 94 mL/min (70-130); Carbon Dioxide 24 mmol/L (23-31); Chloride 107 mmol/L (98-107); Glucose 76 mg/dL (83-110); Potassium 3.8 mmol/L (3.5-5.1); Sodium 139 mmol/L (136-145)
[2020-05-25] MEDS: Aspirin 81 mg Enteric Coated Tablet PO SCH (07:57)
[2020-05-25] MEDS: Heparin 5,000 UNITS/ML VIAL SC SCH ×3 (07:58→21:19)
[2020-05-25] MEDS: Atenolol 25 MG TAB PO SCH (07:58)
[2020-05-25] MEDS: Famotidine/PF 20 mg/2ml Vial SLOW IVP SCH ×2 (07:58→21:20)
[2020-05-25] MEDS: Polyethylene Glycol 3350 17 GM Packet PO SCH (07:58)
[2020-05-25] MEDS: Cefepime 1 GM in Sodium Chloride 0.9% 100 ML IVPB SCH ×2 (10:01→22:21)
[2020-05-25] MEDS: Vancomycin HCl 1 GM in Sodium Chloride 0.9% 250 ML 250 ML IVPB SCH ×2 (10:38→22:25)
[2020-05-26] MEDS: Atenolol 25 MG TAB PO SCH (10:30)
[2020-05-26] MEDS: Aspirin 81 mg Enteric Coated Tablet PO SCH (10:30)
[2020-05-26] MEDS: Polyethylene Glycol 3350 17 GM Packet PO SCH (10:30)
[2020-05-26] MEDS: Heparin 5,000 UNITS/ML VIAL SC SCH ×3 (10:30→21:09)
[2020-05-26] MEDS: Famotidine/PF 20 mg/2ml Vial SLOW IVP SCH ×2 (10:31→21:09)
[2020-05-26] MEDS: Cefepime 1 GM in Sodium Chloride 0.9% 100 ML IVPB SCH (10:33)
[2020-05-26] MEDS: Vancomycin HCl 1 GM in Sodium Chloride 0.9% 250 ML 250 ML IVPB SCH (10:33)
[2020-05-27 06:01] LABS: #Eosinphils 0.3 10x3/uL (0.0-0.5); #Monocytes 0.8 10x3/uL (0.0-1.1); #Neutrophils 8.2 10x3/uL (1.5-8.4); %Basophils 0.2 % (0.0-2.0); %Eosinophils 2.7 % (0.0-6.0); %Lymphocytes 10.8 % (18.0-47.0); %Monocytes 7.5 % (0.0-10.0); %Neutrophils 78.4 % (40.0-75.0); Hemoglobin 8.7 g/dL (13.5-17.5); Mean Corpuscular HGB CONC 33.1 g/dL (32.0-36.0); Mean Corpuscular Hemoglobin 32.5 pg (27.0-33.0); Mean Corpuscular Volume 98.1 fl (81.2-95.1); Mean Platelet Volume 10.2 fl (7.4-10.4); Platelet Count 448 10x3/uL (150-450); Red Blood Cell (RBC) Count 2.68 10x6/uL (4.32-5.72); White Blood Cell (WBC) Count 10.4 10x3/uL (3.5-10.5)
[2020-05-27] MEDS: Aspirin 81 mg Enteric Coated Tablet PO SCH (10:12)
[2020-05-27] MEDS: Heparin 5,000 UNITS/ML VIAL SC SCH ×3 (10:13→20:09)
[2020-05-27] MEDS: Famotidine/PF 20 mg/2ml Vial SLOW IVP SCH ×2 (10:13→20:09)
[2020-05-27] MEDS: Atenolol 25 MG TAB PO SCH (10:13)
[2020-05-27] MEDS: Polyethylene Glycol 3350 17 GM Packet PO SCH (10:19)
[2020-05-28] MEDS: Acetaminophen 500 MG TAB PO PRN (00:10)
[2020-05-28] MEDS: Heparin 5,000 UNITS/ML VIAL SC SCH ×3 (07:48→20:21)
[2020-05-28] MEDS: Aspirin 81 mg Enteric Coated Tablet PO SCH (07:49)
[2020-05-28] MEDS: Famotidine/PF 20 mg/2ml Vial SLOW IVP SCH ×2 (07:49→20:21)
[2020-05-28] MEDS: Atenolol 25 MG TAB PO SCH (07:49)
[2020-05-28] MEDS: Polyethylene Glycol 3350 17 GM Packet PO SCH (08:58)
[2020-05-29] MEDS: Atenolol 25 MG TAB PO SCH (09:42)
[2020-05-29] MEDS: Aspirin 81 mg Enteric Coated Tablet PO SCH (09:43)
[2020-05-29] MEDS: Famotidine/PF 20 mg/2ml Vial SLOW IVP SCH ×2 (09:44→20:32)
[2020-05-29] MEDS: Heparin 5,000 UNITS/ML VIAL SC SCH ×3 (09:47→20:32)
[2020-05-29] MEDS: Polyethylene Glycol 3350 17 GM Packet PO SCH (10:00)
[2020-05-30] MEDS: Aspirin 81 mg Enteric Coated Tablet PO SCH (09:49)
[2020-05-30] MEDS: Heparin 5,000 UNITS/ML VIAL SC SCH ×3 (09:50→20:44)
[2020-05-30] MEDS: Famotidine/PF 20 mg/2ml Vial SLOW IVP SCH ×2 (09:50→20:44)
[2020-05-30] MEDS: Atenolol 25 MG TAB PO SCH (09:50)
[2020-05-30] MEDS: Polyethylene Glycol 3350 17 GM Packet PO SCH (09:53)
[2020-05-31 07:11] VITALS: BMI 30.4
[2020-05-31] MEDS: Aspirin 81 mg Enteric Coated Tablet PO SCH (09:27)
[2020-05-31] MEDS: Atenolol 25 MG TAB PO SCH (09:28)
[2020-05-31] MEDS: Famotidine/PF 20 mg/2ml Vial SLOW IVP SCH (10:33)
[2020-05-31] MEDS: Heparin 5,000 UNITS/ML VIAL SC SCH ×2 (10:33→13:51)
[2020-05-31] MEDS: Polyethylene Glycol 3350 17 GM Packet PO SCH (10:33)
[2020-05-31 15:55] VITALS: BP 128/69; TEMP 98.2
== END 2020-05-31 18:15 | disposition home health service (06) | DRG 329 ==
LOC: CSHERS 08:57 → CSHIMCU 16:27 → CSHTELE 05-25 12:00
PROVIDERS: ADMIT Surgery; ATTEND Surgery
PROC: 0BH17EZ Insertion of Endotracheal Airway into Trachea, Via Natural or Artificial Opening (ICD-10-PCS; 2020-05-15)
PROC: 5A1945Z Respiratory Ventilation, 24-96 Consecutive Hours (ICD-10-PCS; 2020-05-15)
PROC: 0DSH0ZZ Reposition Cecum, Open Approach (ICD-10-PCS; principal; 2020-05-16)
PROC: 0DJ00ZZ Inspection of Upper Intestinal Tract, Open Approach (ICD-10-PCS; 2020-05-17)
PROC: 02HV33Z Insertion of Infusion Device into Superior Vena Cava, Percutaneous Approach (ICD-10-PCS; 2020-05-22)
PROC: B548ZZA Ultrasonography of Superior Vena Cava, Guidance (ICD-10-PCS; 2020-05-22)
DX: K56.2 Volvulus (principal); K55.019 Acute (reversible) ischemia of small intestine, extent unspecified; R65.11 Systemic inflammatory response syndrome (SIRS) of non-infectious origin with acute organ dysfunction; J96.90 Respiratory failure, unspecified, unspecified whether with hypoxia or hypercapnia; I21.4 Non-ST elevation (NSTEMI) myocardial infarction; E87.2 Acidosis; N39.0 Urinary tract infection, site not specified; I47.1 Supraventricular tachycardia; N17.9 Acute kidney failure, unspecified; J95.851 Ventilator associated pneumonia; I24.8 Other forms of acute ischemic heart disease; K56.7 Ileus, unspecified; Z20.822 Contact with and (suspected) exposure to COVID-19; I10 Essential (primary) hypertension; E78.5 Hyperlipidemia, unspecified; D69.6 Thrombocytopenia, unspecified; E87.6 Hypokalemia; K59.00 Constipation, unspecified; E87.5 Hyperkalemia; Z88.0 Allergy status to penicillin; Z85.46 Personal history of malignant neoplasm of prostate; Z79.899 Other long term (current) drug therapy
CPT/HCPCS: 0240U; 31500; 36415; 36416; 36569; 36600; 51702; 71045; 74018; 74177; 80048; 80053; 80202; 81001; 81003; 81015; 82274; 82553; 82565; 82805; 83605; 83735; 83880; 84484; 84520; 85025; 85060; 87040; 87086; 88307; 93005; 93010; 93306; 94002; 94003; 94760; 96365; 96366; 96375; C1751; C1765; J0171; J0692; J0694; J0696; J1160; J1644; J2060; J2270; J2704; J3010; J3370; J3480; J3490; J7050; S0020; S0028

== ENCOUNTER 2021-08-09 10:29 | Outpatient (CLI) | payer MEDICARE, OTHER | END 2021-08-09 10:30 | disposition home or self-care (01) | LOC: CSHLAB 10:29 | PROVIDERS: ATTEND Internal Medicine Hematology & Oncology | DX: Z20.822 Contact with and (suspected) exposure to COVID-19 (principal) | CPT/HCPCS: U0003; U0005 ==

== ENCOUNTER 2021-08-14 10:17 | Day surgery (SDC) | payer MEDICARE, OTHER ==
[2021-08-14 11:28] VITALS: TEMP 97.7; BMI 25.4
[2021-08-14 13:39] VITALS: BP 135/72
== END 2021-08-14 12:55 | disposition home or self-care (01) ==
LOC: CSHCT 10:17
PROVIDERS: ATTEND Internal Medicine Hematology & Oncology
PROC: 07DR3ZX Extraction of Iliac Bone Marrow, Percutaneous Approach, Diagnostic (ICD-10-PCS; principal; 2021-08-14)
DX: D75.89 Other specified diseases of blood and blood-forming organs (principal); D50.0 Iron deficiency anemia secondary to blood loss (chronic); I10 Essential (primary) hypertension; E78.00 Pure hypercholesterolemia, unspecified; J44.9 Chronic obstructive pulmonary disease, unspecified; Z87.891 Personal history of nicotine dependence; Z88.0 Allergy status to penicillin; Z88.8 Allergy status to other drugs, medicaments and biological substances; Z79.899 Other long term (current) drug therapy
CPT/HCPCS: 77012; 88184; 88237; 88264; 88280

== ENCOUNTER 2023-04-01 13:44 | Emergency (ER) | payer MEDICARE, OTHER | END 2023-04-01 17:05 | disposition home or self-care (01) | LOC: CSHERS 13:44 | DX: K56.41 Fecal impaction (principal); I10 Essential (primary) hypertension; Z87.891 Personal history of nicotine dependence | CPT/HCPCS: 99283 ==

== ENCOUNTER 2023-04-07 16:25 | Observation (INO) | payer MEDICARE, OTHER ==
[2023-04-07 17:38] LABS: Actual Bicarbonate (HCO3v) 29.5 mEq/L (22-28); Analyzer IN Cardio CS ER; Base Excess 3.3 mEq/L (-2 - +2); Chloride (VBG) 102 mmol/L (98-106); Hematocrit-VBG 32 % (42.0-52.0); Potassium (VBG) 3.81 mmol/L (3.70-5.30); Puncture Site Other Site; RapidComm Collect By CBN; Sodium 140 mmol/L (133-146); pH (venous) 7.364 (7.32-7.43)
[2023-04-07 17:39] LABS: #Eosinphils 0.5 10x3/uL (0.0-0.5); #Monocytes 0.8 10x3/uL (0.0-1.1); #Neutrophils 6.4 10x3/uL (1.5-8.4); %Basophils 0.4 % (0.0-2.0); %Eosinophils 5.4 % (0.0-6.0); %Monocytes 8.6 % (0.0-10.0); %Neutrophils 70.4 % (40.0-75.0); Hemoglobin 10.3 g/dL (13.5-17.5); Mean Corpuscular HGB CONC 33.2 g/dL (32.0-36.0); Mean Corpuscular Hemoglobin 32.2 pg (27.0-33.0); Mean Corpuscular Volume 96.9 fl (81.2-95.1); Mean Platelet Volume 10.2 fl (7.4-10.4); Platelet Count 181 10x3/uL (150-450); RBC Distribution Width 16.1 % (11.5-14.5); White Blood Cell (WBC) Count 9.1 10x3/uL (3.5-10.5)
[2023-04-07 17:54] LABS: INR-International Normal Ratio 1.1; PTT 28.2 sec (22.0-33.0); Prothrombin Time 11.4 sec (9.5-12.1)
[2023-04-07 17:57] LABS: ALT (SGPT) 12 U/L (8-55); AST (SGOT) 15 U/L (5-34); Albumin 3.3 g/dL (3.4-4.8); Alkaline Phosphatase 61 U/L (40-110); Anion Gap 11 mmol/L (10-20); BUN (Urea Nitrogen) 21 mg/dL (8.4-25.7); Bilirubin, Total 0.4 mg/dL (0.2-1.2); Calc. Creatinine Clearance 0 mL/min (70-130); Calcium 8.5 mg/dL (7.8-10.44); Carbon Dioxide 28 mmol/L (23-31); Chloride 104 mmol/L (98-107); Estimated GFR 41; Globulin 4.4 g/dL (2.4-3.5); Glucose 137 mg/dL (83-110); Potassium 3.8 mmol/L (3.5-5.1); Protein, Total 7.7 g/dL (5.8-8.1); Sodium 139 mmol/L (136-145)
[2023-04-07 18:02] LABS: Troponin I Less than 0.010 ng/mL (< 0.028)
[2023-04-07 18:41] LABS: Bilirubin Neg (Negative); Blood, Urine Negative (Negative); Clarity Clear (Clear); Glucose, Urine (Dipstick) Normal (Negative); Ketone, Urine Negative (Negative); Leukocyte Negative (Negative); Nitrite Negative (Negative); Protein, Urine (Dipstick) 15 mg/dl (Neg-Trace); Specific Gravity, Urine 1.005 (1.005-1.030); Urobilinogen Normal mg/dL (Less than 2)
[2023-04-07 18:59] LABS: Influenza A by NAA Not Detected (NotDetected); Influenza B by NAA Not Detected (NotDetected); SARS-CoV-2 NAA Rapid Test Not Detected (NotDetected)
[2023-04-07] MEDS ORDERED: Furosemide 40 MG (4 mL) VIAL ONE (19:03)
[2023-04-07 19:06] LABS: RBC/HPF None Seen HPF (0-3)
[2023-04-07 19:07] LABS: Bacteria/HPF Rare-Few HPF (None Seen); CAUTI Indications for Culture Alt mental st,lethar; Squamous Epithelial 0-3 HPF (0-3); WBC/HPF 0-3 HPF (0-3)
[2023-04-07 19:09] LABS: Urine Culture Reflex No No
[2023-04-07] MEDS ORDERED: LevoFLOXacin 750 mg/D5W 150 ml Premix Bag ONE (19:13)
[2023-04-07] MEDS ORDERED: Calcium Carbonate 500 MG ChewTAB PO PRN (21:20)
[2023-04-07] MEDS ORDERED: Guaifenesin DM 100-10/5 ML UDCUP PO PRN (21:20)
[2023-04-07] MEDS ORDERED: Senokot S 8.6-50 MG TAB PO PRN (21:20)
[2023-04-07] MEDS ORDERED: Acetaminophen 325 MG TAB PO PRN (21:20)
[2023-04-07] MEDS ORDERED: Ondansetron PF 4 MG/2 ML Vial IVP PRN (21:20)
[2023-04-07 22:27] LABS: Magnesium 2.6 mg/dL (1.6-2.6)
[2023-04-07 22:34] LABS: Troponin I Less than 0.010 ng/mL (< 0.028)
[2023-04-08 00:15] VITALS: TEMP 97.4
[2023-04-08 03:48] LABS: Anion Gap 12 mmol/L (10-20); BUN (Urea Nitrogen) 23 mg/dL (8.4-25.7); Calc. Creatinine Clearance 0 mL/min (70-130); Calcium 8.6 mg/dL (7.8-10.44); Carbon Dioxide 28 mmol/L (23-31); Chloride 104 mmol/L (98-107); Estimated GFR 46; Glucose 98 mg/dL (83-110); Potassium 4.1 mmol/L (3.5-5.1); Sodium 140 mmol/L (136-145)
[2023-04-08 03:56] LABS: Troponin I Less than 0.010 ng/mL (< 0.028)
[2023-04-08] MEDS ORDERED: Enoxaparin 40 MG (0.4 mL) SYRINGE ONE (08:57)
[2023-04-08] MEDS ORDERED: Furosemide 40 MG TAB ONE (08:58)
[2023-04-08] MEDS ORDERED: Aspirin 81 mg Enteric Coated Tablet ONE (08:58)
[2023-04-08] MEDS ORDERED: Atorvastatin Calcium 10 MG TAB ONE (08:59)
[2023-04-08] MEDS: Aspirin 81 mg Enteric Coated Tablet PO SCH (09:09)
[2023-04-08] MEDS: Furosemide 40 MG TAB PO SCH (09:10)
[2023-04-08] MEDS: Enoxaparin 40 MG (0.4 mL) SYRINGE SC SCH (09:10)
[2023-04-08] MEDS: Atorvastatin Calcium 20 MG TAB PO SCH (09:10)
[2023-04-08] MEDS: Atenolol 25 MG TAB PO SCH (09:53)
[2023-04-08] MEDS: Magnesium Oxide 400 MG TAB PO SCH (09:53)
[2023-04-08] MEDS: Ferrous Sulfate 325 MG TAB PO SCH (09:53)
[2023-04-08] MEDS: hydrALAZINE 10 MG TAB PO SCH (09:53)
[2023-04-08] MEDS: Potassium Chloride 10 MEQ TAB PO SCH (09:53)
[2023-04-08] MEDS: Isosorbide Mononitrate 30 MG ER.TAB PO SCH (09:53)
[2023-04-08 15:01] VITALS: BP 121/71
[2023-04-09] MEDS ORDERED: Ferrous Sulfate 325 MG TAB PO SCH (09:00)
== END 2023-04-08 14:31 | disposition home or self-care (01) ==
LOC: CSHERS 16:25 → CSHERHOLD 21:20
PROVIDERS: ADMIT Student in an Organized Health Care Education/Training Program; ATTEND Family Medicine
DX: R60.0 Localized edema (principal); J44.9 Chronic obstructive pulmonary disease, unspecified; I13.0 Hypertensive heart and chronic kidney disease with heart failure and stage 1 through stage 4 chronic kidney disease, or unspecified chronic kidney disease; I50.20 Unspecified systolic (congestive) heart failure; N18.2 Chronic kidney disease, stage 2 (mild); N17.9 Acute kidney failure, unspecified; R79.89 Other specified abnormal findings of blood chemistry; G47.33 Obstructive sleep apnea (adult) (pediatric); D53.9 Nutritional anemia, unspecified; F03.90 Unspecified dementia, unspecified severity, without behavioral disturbance, psychotic disturbance, mood disturbance, and anxiety; Z79.899 Other long term (current) drug therapy; Z88.0 Allergy status to penicillin; Z91.040 Latex allergy status; Z87.891 Personal history of nicotine dependence; W19.XXXA Unspecified fall, initial encounter
CPT/HCPCS: 0240U; 70450; 71045; 71250; 80048; 80053; 81001; 82805; 83605; 83735; 83880 ×2; 84443; 84484 ×3; 85025; 85610; 85730; 93005; 94762; 96365; 96366; 96372; 96375; 97530; 97535; 99285; G0378 ×2; 36415; J1650; J1940; J1956